=== PATIENT | male | born 1985 | race Caucasian/White ===

== ENCOUNTER 2019-04-08 09:44 | Emergency (ER) | payer OTHER ==
[~2019-04-08] VITALS: Ht 182.9 cm; Wt 122.5 kg
[2019-04-08] MEDS ORDERED: KEFLEX500 M1 PO (10:10)
[2019-04-08] MEDS ORDERED: BACTRIM DS TAB1 EACH PO (10:10)
[2019-04-08] MEDS ORDERED: PREDNISONE 10 M10 MG PO (10:10)
[2019-04-08 10:20] VITALS: BP 177/122
== END 2019-04-08 10:23 | disposition home or self-care (01) ==
LOC: M.ERS 09:44
DX: L73.9 Follicular disorder, unspecified (principal); I10 Essential (primary) hypertension

== ENCOUNTER 2019-05-17 21:51 | Inpatient (IN) | payer OTHER ==
[~2019-05-17] VITALS: Ht 182.9 cm; Wt 125.6 kg
[~2019-05-17 21:51] MED LIST: BACTRIM DS TAB1 EACH PO; KEFLEX500 M1 PO; PREDNISONE 10 M10 MG PO
[2019-05-17 21:56] VITALS: BP 181/114
[2019-05-17 22:20] LABS: ABSOLUTE BASOPHILS 0.1 thou/uL (0.0-0.2); ABSOLUTE EOSINOPHILS 0.2 thou/uL (0.0-0.7); ABSOLUTE LYMPHOCYTES 4.8 thou/uL (0.8-5.3); ABSOLUTE MONOCYTES 1.3 thou/uL (0.0-1.2); BASOPHILS 1.1 %; EOSINOPHILS 1.7 %; HEMATOCRIT 48.8 % (42.0-52.0); HEMOGLOBIN 16.8 gm/dL (14.0-18.0); LYMPHOCYTES 42.3 %; MCH 33.7 pg (26.0-34.0); MCHC 34.4 g/dL (28.0-37.0); MONOCYTES 11.2 %; MPV 7.7 fl. (7.2-11.1); NUCLEATED RBCS 0 /100WBC; PLATELET COUNT* 237 thou/uL (150-400); POLYS 43.7 %; RBC 4.98 mil/uL (4.50-6.00); RDW-CV 14.1 % (10.5-14.5); WBC 11.4 thou/uL (4.0-11.0)
[2019-05-17 22:23] LABS: CALCIUM 9.6 mg/dL (8.5-10.1); CREATININE 0.9 mg/dL (0.6-1.3); POTASSIUM 3.4 mmol/L (3.5-5.1)
[2019-05-17 22:27] LABS: ALBUMIN 3.7 g/dL (3.4-5.0); PROTIME 10.4 Seconds (9.20-11.50); TOTAL BILIRUBIN 0.4 mg/dL (<0.1-1.0); TOTAL PROTEIN 8.5 g/dL (6.4-8.2)
[2019-05-17 22:34] LABS: MAGNESIUM 1.8 mg/dL (1.8-2.4); PHOSPHORUS* 3.8 mg/dL (2.5-4.9)
[2019-05-17 23:22] LABS: URINE BILIRUBIN NEGATIVE (Negative); URINE BLOOD TRACE (Negative); URINE CLARITY CLEAR; URINE COLOR STRAW; URINE GLUCOSE-RANDOM NEGATIVE (Negative); URINE KETONES NEGATIVE (Negative); URINE LEUKOCYTES-REFLEX NEGATIVE (Negative); URINE NITRITE-REFLEX NEGATIVE (Negative); URINE PROTEIN NEGATIVE (Negative); URINE SPECIFIC GRAVITY <= 1.005 (1.005-1.030); URINE UROBILINOGEN 0.2 E.U./dl (0.2-1.0)
[2019-05-18] VITALS (16 sets, daily range): BP systolic 105–182; BP diastolic 44–131
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
[2019-05-18 06:13] LABS: AMP/METHAMP Negative (Negative); BARBITURATES Negative (Negative); BENZODIAZEPINES Negative (Negative); COCAINE Negative (Negative); METHADONE Negative (Negative); OPIATES Negative (Negative); PCP Negative (Negative); THC Negative (Negative)
--- NOTE | 2019-05-18 06:19 | NUR ---
REPORT GIVEN TO RAJWINDER OROPEZA FOR CONTINUED CARE.
--- NOTE | 2019-05-18 12:18 | EKG ---
[place] [address] ELECTROCARDIOGRAM REPORT Name: BRENDON NGUYEN Room: [address] ADM IN M.R.#: [id number] Admission: 05/18/19 Attend Phys: Brandon Barba MD Discharge: Date of : 87 Report #: [id number] THIS REPORT FOR: //name// [facility] ED Test Date: 2019-05-17 Test Time: 21:58:06 Pat Name: BRENDON NGUYEN Department: Room: [facility] Gender: M Nurse Emergency: [place] : 1985 Requested By: Scarlet White Order Number: [id number] MD: Juni Todd Measurements Intervals [place] Rate: 123 P: 31 KS: 165 QRS: -36 QRSD: 84 T: -9 QT: 347 QTc: 497 Interpretive Statements Sinus tachycardia Probable left atrial enlargement Inferior infarct, 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 05/18/19 1218 57 57 Ino Todd MD, [facility] /EPI
[2019-05-19] VITALS (7 sets, daily range): BP systolic 136–159; BP diastolic 92–104
[2019-05-19 04:55] LABS: CREATININE 0.6 mg/dL (0.6-1.3); MAGNESIUM 2.3 mg/dL (1.8-2.4); PHOSPHORUS* 2.6 mg/dL (2.5-4.9); POTASSIUM 3.4 mmol/L (3.5-5.1)
--- NOTE | 2019-05-19 05:20 | NUR ---
VITALS STABLE, AFEBRILE. PT SLEPT ON AND OFF THROUGH THE NIGHT. MODERATE SWEATING, NO TREMORS NOTED. REPORTED HEADACHE THAT RESOLVED WITH ONE DOSE OF TYLENOL. OTHERWISE UNEVENTFUL NIGHT. REMAINS ON FALL AND SEIZURE PRECAUTIONS. CALL LIGHT WITHIN REACH.
[2019-05-19] MEDS ORDERED: PNV 29-1 TABLE1 EACH PO (08:18)
[2019-05-19] MEDS ORDERED: VITAMIN B-1100 M2 PO (08:21)
[2019-05-19] MEDS ORDERED: FOLIC ACID1 MG PO (08:24)
[2019-05-19] MEDS ORDERED: PRILOSEC OTC20 MG PO (08:31)
--- NOTE | 2019-05-19 09:45 | NUR ---
MET WITH PT, HAS DC ORDERS. PT IS UNINSURED, STAYING WITH PARENTS AT THIS TIME. HE WORKS BUT THEY DO NOT OFFER INSURANCE. PT IS GETTING , XWIFE AND CHILD ARE IN DC AREA. HE IS VET, [facility]OURCES. GIVEN AND DISCUSSED. PT STATES HE PLANS TO F/U
== END 2019-05-19 10:15 | disposition home or self-care (01) | DRG 896 ==
LOC: M.ERS 21:51 → M.TBA-ER 05-18 00:07 → M.ICU 05-18 00:24
PROVIDERS: Emergency Medicine; ADMIT Internal Medicine
DX: F10.129 Alcohol abuse with intoxication, unspecified (principal); G92 Toxic encephalopathy; I10 Essential (primary) hypertension; Y90.9 Presence of alcohol in blood, level not specified; F17.220 Nicotine dependence, chewing tobacco, uncomplicated; E86.0 Dehydration; F43.9 Reaction to severe stress, unspecified; Z79.899 Other long term (current) drug therapy

== ENCOUNTER 2019-11-08 15:27 | Inpatient (IN) | payer OTHER ==
[~2019-11-08] VITALS: Ht 185.4 cm; Wt 115.3 kg
--- NOTE | ~2019-11-08 | PROC ---
[address] [address] PROCEDURE REPORT Name: BRENDON NGUYEN Room: [address] IN M.R.#: [id number] Admission: 11/08/19 Attend Phys: Dimas Bajwa Discharge: 11/11/19 Date of : 87 Report #: [id number] THIS REPORT FOR: //name// cc: RITO - No family physician/PCP FAM - No family physician/PCP ~ THIS REPORT FOR: //name// For GI report, please see the Provation report in Perceptive 7 content. By: 1037Medical Records Staff [facility] /DAYANA
[~2019-11-08 15:27] MED LIST changes: +FOLIC ACID1 MG PO; +PNV 29-1 TABLE1 EACH PO; +PRILOSEC OTC20 MG PO; +VITAMIN B-1100 M2 PO
[2019-11-08 15:33] VITALS: BP 176/116
[2019-11-08 15:54] LABS: ABSOLUTE BASOPHILS 0.1 thou/uL (0.0-0.2); ABSOLUTE EOSINOPHILS 0.1 thou/uL (0.0-0.7); ABSOLUTE LYMPHOCYTES 1.9 thou/uL (0.8-5.3); ABSOLUTE MONOCYTES 1.6 thou/uL (0.0-1.2); ABSOLUTE NEUTROPHILS 9.7 thou/uL (1.6-8.1); BASOPHILS 0.8 %; EOSINOPHILS 0.6 %; HEMATOCRIT 44.6 % (42.0-52.0); HEMOGLOBIN 15.9 gm/dL (14.0-18.0); LYMPHOCYTES 14.2 %; MCH 34.9 pg (26.0-34.0); MCHC 35.6 g/dL (28.0-37.0); MCV 98.1 fL (80.0-100.0); MONOCYTES 12.2 %; MPV 7.1 fl. (7.2-11.1); NUCLEATED RBCS 0 /100WBC; PLATELET COUNT* 120 thou/uL (150-400); POLYS 72.2 %; RBC 4.55 mil/uL (4.50-6.00); RDW-CV 13.9 % (10.5-14.5); WBC 13.4 thou/uL (4.0-11.0)
[2019-11-08 16:02] LABS: URINE BILIRUBIN NEGATIVE (Negative); URINE BLOOD 1+ (Negative); URINE COLOR YELLOW; URINE GLUCOSE-RANDOM NEGATIVE (Negative); URINE KETONES NEGATIVE (Negative); URINE LEUKOCYTES-REFLEX NEGATIVE (Negative); URINE NITRITE-REFLEX NEGATIVE (Negative); URINE PROTEIN NEGATIVE (Negative); URINE SPECIFIC GRAVITY <= 1.005 (1.005-1.030); URINE UROBILINOGEN 0.2 E.U./dl (0.2-1.0)
[2019-11-08 16:03] LABS: CALCIUM 7.8 mg/dL (8.5-10.1); CREATININE 0.9 mg/dL (0.6-1.3)
[2019-11-08 16:05] LABS: POTASSIUM 2.7 mmol/L (3.5-5.1)
[2019-11-08 16:06] LABS: URINE CLARITY HAZY
[2019-11-08 16:08] LABS: ALBUMIN 3.3 g/dL (3.4-5.0); TOTAL PROTEIN 8.2 g/dL (6.4-8.2)
[2019-11-08 16:09] LABS: AMP/METHAMP Negative (Negative); BARBITURATES Negative (Negative); BENZODIAZEPINES Negative (Negative); COCAINE Negative (Negative); METHADONE Negative (Negative); OPIATES Negative (Negative); PCP Negative (Negative); THC Negative (Negative)
[2019-11-08 16:16] LABS: ACETAMINOPHEN < 2 ug/mL (10-30); SALICYLATE < 2.8 mg/dL (2.8-20.0)
[2019-11-08 16:17] LABS: ALCOHOL 428 mg/dL (<10)
[2019-11-08] MEDS ORDERED: ATIVAN1 M1 PO (16:24)
[2019-11-08] MEDS ORDERED: ZOFRAN ODT4 MG SUBLING (16:24)
[2019-11-08] MEDS ORDERED: POTASSIUM20 PO (16:24)
[2019-11-08 16:29] LABS: BACTERIA-REFLEX None Seen /HPF (None Seen); CASTS None Seen /LPF (None Seen); CRYSTALS None Seen /LPF (None Seen); SQUAMOUS 0-3 Few /LPF (0-3); URINE RBC 0-2 Rare /HPF (0-2); URINE WBC-REFLEX None Seen /HPF (0-5)
[2019-11-08 17:04] LABS: MAGNESIUM 1.7 mg/dL (1.8-2.4); PHOSPHORUS* 1.7 mg/dL (2.5-4.9)
[2019-11-08 18:55] VITALS: BP 139/76
[2019-11-08 19:12] VITALS: BP 137/92
[2019-11-09] VITALS (9 sets, daily range): BP systolic 132–176; BP diastolic 76–132
[2019-11-09 04:47] LABS: ALBUMIN 2.6 g/dL (3.4-5.0); CALCIUM 7.3 mg/dL (8.5-10.1); CREATININE 0.9 mg/dL (0.6-1.3); MAGNESIUM 1.8 mg/dL (1.8-2.4); POTASSIUM 3.1 mmol/L (3.5-5.1); TOTAL BILIRUBIN 0.8 mg/dL (<0.1-1.0); TOTAL PROTEIN 6.7 g/dL (6.4-8.2)
--- NOTE | 2019-11-09 06:33 | NUR ---
Shift uneventful. Potassium critically low on admission at 2.7 and magnesium was low at 1.5. PO replacement was administered and charted in JUL. AM labs showed potassium was still low at 3.3 and second PO dose was administered. Lab redraw for potassium was also ordered. Magnesium had normalized at 1.8. Pt is aox4, running NSR on telemetry, respirations are even and unlabored on room air.
[2019-11-09 11:23] LABS: ABSOLUTE EOSINOPHILS 0.1 thou/uL (0.0-0.7); ABSOLUTE LYMPHOCYTES 2.2 thou/uL (0.8-5.3); ABSOLUTE NEUTROPHILS 4.1 thou/uL (1.6-8.1); BASOPHILS 0.6 %; EOSINOPHILS 1.9 %; HEMATOCRIT 40.4 % (42.0-52.0); LYMPHOCYTES 29.4 %; MCH 34.8 pg (26.0-34.0); MCHC 34.7 g/dL (28.0-37.0); MCV 100.1 fL (80.0-100.0); MONOCYTES 13.6 %; MPV 8.1 fl. (7.2-11.1); NUCLEATED RBCS 0 /100WBC; PLATELET COUNT* 95 thou/uL (150-400); POLYS 54.5 %; RBC 4.04 mil/uL (4.50-6.00); RDW-CV 14.2 % (10.5-14.5); WBC 7.5 thou/uL (4.0-11.0)
--- NOTE | 2019-11-09 18:45 | NUR ---
PT HAS RESTED T/O DAY WITH COMPLAINT. BOWEL PREP BEGAN. PT HAS COLLECTION HAT FOR SAMPLE. VSS. SR ON MONITOR. PT IS UP AD LUNA AND HAS HAD NO WITHDRAWAL S/S AT THIS TIME.CLWR
[2019-11-10 00:30] VITALS: BP 145/96
[2019-11-10 04:00] VITALS: BP 141/86
[2019-11-10 08:00] VITALS: BP 128/98
[2019-11-10 12:00] VITALS: BP 168/114
--- NOTE | 2019-11-10 13:41 | NUR ---
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 PT REPORTS NO ANXIETY, TREMORS, DIAPHORESIS OR OTHER ALCOHOL W/DRAWAL SYMPTOMS. PT HAS BEEN NPO SINCE MIDNIGHT FOR EGD/COLON TODAY. PT GOAL IS TO COMPLETE EGD/COLON AND INCREASE ACTIVITY. PT CURRENTLY HAS BANANA BAG RUNNING AT 100 ML/HR AND ABX IN OTHER IV RUNNING AT 25 ML/HR. AM ASSESSMENT CHARTED, MEDS PER MAR, HOURLY ROUNDING OBSERVED, PT IS UP AD LUNA, WILL CONTINUE POC.
--- NOTE | 2019-11-10 16:31 | NUR ---
PT.OFF FLOOR FOR EGD. CM WILL SEE IN AM.
[2019-11-10 18:10] VITALS: BP 160/99
--- NOTE | 2019-11-10 18:43 | NUR ---
NO ACUTE CHANGES THROUGHOUT SHIFT, PT RETURNED TO UNIT AT APPROX 1730, VSS, NO C/O PAIN, BANANA BAG AND ABX HOOKED BACK UP TO PT, WILL CONTINUE POC.
[2019-11-10 20:00] VITALS: BP 141/48
[2019-11-11] VITALS: BP 148/94
[2019-11-11 04:36] VITALS: BP 134/92
--- NOTE | 2019-11-11 06:38 | NUR ---
ASSUMED CARE OF PT AFTER REPORT AT 1930. PT A&OX4. VSS. PHYSICAL ASSESSMENT COMPLETED AND CHARTED. PT ON RA. PT TRACING SR/SB ON TELE. PT UPADLIB TO RESTROOM. PT DENIES ANY PAIN OR DISCOMFORT. CALL LIGHT WITHIN REACH.
[2019-11-11 07:18] LABS: HEMOGLOBIN 15.2 gm/dL (14.0-18.0); MCHC 35.4 g/dL (28.0-37.0); MCV 99.1 fL (80.0-100.0); MPV 8.2 fl. (7.2-11.1); RBC 4.34 mil/uL (4.50-6.00); RDW-CV 13.9 % (10.5-14.5); WBC 7.9 thou/uL (4.0-11.0)
[2019-11-11 07:36] LABS: ALBUMIN 3.1 g/dL (3.4-5.0); CALCIUM 8.7 mg/dL (8.5-10.1); CREATININE 0.8 mg/dL (0.6-1.3); MAGNESIUM 1.6 mg/dL (1.8-2.4); POTASSIUM 3.1 mmol/L (3.5-5.1); TOTAL BILIRUBIN 2.2 mg/dL (<0.1-1.0); TOTAL PROTEIN 7.6 g/dL (6.4-8.2)
[2019-11-11 08:00] VITALS: BP 137/84
[2019-11-11] MEDS ORDERED: VITAMIN B-1100 M1 PO (10:09)
[2019-11-11] MEDS ORDERED: HYDROCHLOROTHIA25 M2 PO (10:09)
[2019-11-11] MEDS ORDERED: PRENATAL PO (10:09)
[2019-11-11 11:08] LABS: HEPATITIS B SURFACE AG Negative (Negative)
[2019-11-11 11:51] VITALS: BP 137/84
--- NOTE | 2019-11-11 13:05 | NUR ---
CM PROVIDED PT W/ALCOHOL USE DISORDER/TX RESOURCES.
--- NOTE | 2019-11-11 13:36 | NUR ---
PT VITALS CHARTED, SB ON TELE, ROOM AIR, NO ABD DISCOMFORT, NO SIGNS OF WITHDRAWAL, UP AD LUNA, HOURLY ROUNDING PERFORMED, POSSESSIONS AND CALL LIGHT WITHIN REACH, REC DISCHARGE ORDERS, REVIEWED WITH PATIENT, SCRIPTS AND CARE NOTES GIVEN, TELE MONITOR AND IV REMOVED WITHOUT COMPLICATION, PATIENT TAKEN BY WC TO FRONT DOOR BY NURSING STAFF, PICKED UP BY SISTER IN FAMILY CAR.
--- NOTE | 2019-11-12 15:08 | PATH ---
[facility] [address] [place] [address] PATHOLOGY RPT PROCEDURE Name: BRENDON NGUYEN Room: [address] IN M.R.#: [id number] Admission: 11/08/19 Date of : 87 Discharge: 11/11/19 Report #: [id number] Path Case #: [id number] [facility] Accession Number: [id number] . 01 Material submitted: . PART A: stomach - GASTRIC BIOPSIES PART B: rectum - RECTUM COLON POLYP PART C: colon - RIGHT COLON BIOPSIES. Modifiers: right . 01 Clinical history: . Colitis, alcohol intoxication, hypokalemia C: R/O colitis . 02 Diagnosis: A. Gastric biopsies: - Mild nonspecific chronic gastritis, negative for Helicobacter pylori organisms and dysplasia. . B. Rectum colon polyp: - Hyperplastic polyp. . C. Right colon biopsies: - Mild nonspecific active colitis, negative for granulomas, diagnostic viral inclusions and dysplasia. (See comment) . (SARAH:oni; 11/12/2019) [facility] 11/12/2019 1146 Local . 02 Comment: The right colon biopsies (C) shows benign colonic mucosa with focal active inflammation evidenced generally by neutrophils within the lamina propria as well as minimal cryptitis. There are no ischemic features and there is no significant basal lymphoplasmacytosis or crypt distortion to elevate a concern for inflammatory bowel disease/chronic colitis. . Special stain (A): H. pylori immuno . (SARAH:mml; 11/12/2019) . 02 Electronically signed: . Adair May MD, Pathologist NPI- [id number] . 01 Gross description: . A. The specimen is received in formalin, labeled "Brendon Nguyen, gastric biopsies for H. pylori". Received is a segment of pale brooke soft tissue measuring 0.4 cm in maximum dimensions. [place] [address] PATHOLOGY RPT PROCEDURE Name: WENDYBRENDON Daly Room: [address] IN [facility]#: [id number] Admission: 11/08/19 Date of : 87 Discharge: 11/11/19 Report #: [id number] Path Case #: [id number] entirely in cassette A1. Upon careful inspection and filtration, no additional tissue is found remaining within the container. . B. The specimen is received in formalin, labeled "Brendon Nguyen, rectum colon polyp". Received is a segment of pale brooke soft tissue measuring 0.6 cm in maximum dimensions. The surgical margin is inked and the segment is bisected. The specimen is submitted entirely in cassette B1. . C. The specimen is received in formalin, labeled "Brendon Nguyen, right colon biopsies to R/O colitis". Received are three segments of pale brooke soft tissue ranging in size from 0.2 to 0.3 cm in maximum dimensions. The specimen is submitted entirely in cassette C1. (CAA; 11/11/2019) QAC/QAC 11/11/2019 1132 Local . 02 Pathologist provided ICD-10: K29.50, K62.1, K52.9 . 02 CPT . 665313, 103814, 336049, J89825 Specimen Comment: A courtesy copy of this report has been sent to [phone], [phone] Specimen Comment: [phone] Specimen Comment: Report sent to / DR YATES Specimen Comment: Report sent to Performed at: [address], [place] [id number] MD Hoang De Jesus MD Phone: [phone] Performed at: [facility] [address], [place], [place] [id number] MD Adair May MD Phone: [phone]
--- NOTE | 2019-11-30 08:28 | CON ---
[address] [address] CONSULTATION Name: BRENDON NGUYEN Room: [address] IN M.R.#: [id number] Admission: 11/08/19 Attend Phys: Dimas Bajwa Discharge: 11/11/19 Date of : 87 Report #: [id number] THIS REPORT FOR: //name// cc: RITO Campbell family physician/PCP RITO - Shannan family physician/PCP ~ THIS REPORT FOR: //name// CC: RITO physician/PCP Dimas Gore DATE OF SERVICE: 11/09/2019 HISTORY OF PRESENT ILLNESS: This is a pleasant 34-year-old gentleman with past medical history significant for alcohol abuse, who is presenting for evaluation of alcohol withdrawal and abdominal pain. The patient reports since June, he has been drinking a fifth of rum every day. Prior to that one month he was completely abstinent but prior to that period of abstinence, the patient will drink regularly about half a bottle of wine every day for 7 years. The patient denies any recreational drug use, smoking. He denies any active hematemesis, hematochezia or weight loss. PAST MEDICAL HISTORY: None significant. PAST SURGICAL HISTORY: None significant. SOCIAL HISTORY: As mentioned above, the patient has a history of alcohol abuse. Denies smoking or recreational drug use. FAMILY HISTORY: No family history of colon cancer or Levine-related neoplasia. REVIEW OF SYSTEMS: A comprehensive 10-point review of systems is negative except for what was mentioned in the HPI. PHYSICAL EXAMINATION: VITAL SIGNS: Temperature 36.7, pulse rate 62, respirations 16, blood pressure 162/113, pulse ox 94% on room air. GENERAL: The patient is alert, awake, oriented x 3. HEENT: Pupils are equal, round, reactive to light and accommodation. Mucous membranes are moist. There is no congestion. LUNGS: Clear to auscultation bilaterally. CARDIOVASCULAR: Rate and rhythm regular, S1, S2 present. ABDOMEN: Soft. There is no distention, guarding or rigidity. EXTREMITIES: Warm, well perfused. There is no edema. SKIN: Warm and dry. LABORATORY DATA: Hemoglobin 14.0, hematocrit 40.4, platelet count [place] [address] CONSULTATION Name: BRENDON NGUYEN Room: [address] IN [facility]#: [id number] Admission: 11/08/19 Attend Phys: Dimas Bajwa Discharge: 11/11/19 Date of : 87 Report #: [id number] count 7.5, MCV 100. Sodium 141, potassium 3.3, chloride 103, bicarbonate 26, BUN 5, creatinine 0.9. Total bilirubin 0.8, AST 163, ALT 116, alkaline phosphatase 46. IMAGING: Abdomen and pelvis CT, this demonstrates severe pancolitis, greatest along cecum and ascending colon and inflammatory fat stranding, small amount of gas within distended cecum, correlate for possible ischemic bowel. Mild hepatomegaly and splenomegaly. ASSESSMENT AND PLAN: Pleasant 34-year-old male with alcohol abuse, presents for evaluation. 1. Epigastric abdominal pain. We will proceed with EGD to rule out peptic ulcer disease. 2. Severe pancolitis noted on CT. We will proceed with colonoscopy and get biopsies of the colon if there is evidence of colitis. 3. Elevated liver enzymes and thrombocytopenia. These are related to his chronic alcohol abuse, strongly advised alcohol cessation. Thank you for this consultation. <ELECTRONICALLY SIGNED> By: Grzegorz Natarajan MD 11/30/19 0828 1232 [id number] Natarajan MD /nt
== END 2019-11-11 12:55 | disposition home or self-care (01) | DRG 872 ==
LOC: M.ERS 15:27 → M.TBA-ER 16:54 → M.2W 16:54
PROVIDERS: Family Medicine; Surgery; ADMIT Family Medicine; ATTEND Family Medicine
PROC: 0DB68ZX Excision of Stomach, Via Natural or Artificial Opening Endoscopic, Diagnostic (ICD-10-PCS; principal; 2019-11-10)
PROC: 0DBP8ZZ Excision of Rectum, Via Natural or Artificial Opening Endoscopic (ICD-10-PCS; principal; 2019-11-10)
PROC: 0DBE8ZX Excision of Large Intestine, Via Natural or Artificial Opening Endoscopic, Diagnostic (ICD-10-PCS; principal; 2019-11-10)
DX: A41.9 Sepsis, unspecified organism (principal); I10 Essential (primary) hypertension; F41.9 Anxiety disorder, unspecified; E87.6 Hypokalemia; K52.9 Noninfective gastroenteritis and colitis, unspecified; F10.929 Alcohol use, unspecified with intoxication, unspecified; F17.210 Nicotine dependence, cigarettes, uncomplicated; E83.39 Other disorders of phosphorus metabolism; D69.6 Thrombocytopenia, unspecified; K76.0 Fatty (change of) liver, not elsewhere classified; R16.1 Splenomegaly, not elsewhere classified; K70.10 Alcoholic hepatitis without ascites; Z82.49 Family history of ischemic heart disease and other diseases of the circulatory system; Z79.899 Other long term (current) drug therapy